=== PATIENT | female | born 2000 | race Caucasian/White ===

== ENCOUNTER 2021-04-03 16:55 | Inpatient (IN) | payer OTHER, MEDICAID, SELFPAY ==
[2021-04-03] VITALS (14 sets, daily range): BP systolic 78–116; BP diastolic 52–63; PULSE 60–91; RESP 16–18; TEMP 36.8–37.6; O2SAT 83–100; BMI 23.0
--- NOTE | ~2021-04-03 | US_ITS ---
US OB limited DATE: 04/03/2021 19:08 INDICATION: Pelvic and back pain today. Evaluate for placental abruption TECHNIQUE: Real-time imaging and Doppler analysis COMPARISON: None FINDINGS: The uterine cervix measures 4 cm length. The fetus is active and in transverse lie. heart rate of 136 bpm. The placenta is situated on t he right. No abnormal retroplacental fluid collection is detected. Subjectively normal amount of anechoic fluid. IMPRESSION: No abrupt show is detected Transverse lie Uterine cervix measures 4 cm length Reviewed, dictated and finalized at Location [facility]. Reviewed, dictated and finalized at location A.
--- NOTE | ~2021-04-03 | US_ITS ---
EXAMINATION: US OB limited EXAM DATE: 04/05/2021 09:07 INDICATION: Check amniotic fluid index. 3rd trimester. TECHNIQUE: Pelvic obstetrical transabdominal sonogram was performed by a technologist. There are mu ltiple grayscale and Doppler images available for interpretation. Comparison is made to prior examina tion from 04/03/2021. FINDINGS: There is a single fetus identified in vertex presentation with a heart rate of 147 beats pe r minute. The placenta is located in the posterior position. There is no sonographic evidence of ret roplacental hemorrhage identified. The amniotic fluid index is 14.6 centimeters, which is normal. IMPRESSION: 1. Single fetus in vertex presentation with heart rate 147 beats per minute. 2. Normal amniotic fluid index 14.6 cm. Reviewed, dictated and finalized at location B.
--- NOTE | ~2021-04-03 | US_ITS ---
EXAMINATION: US_ABDRLQ_US DATE: 04/04/2021 07:43 INDICATION: Pelvic/back pain during second trimester . TECHNIQUE: Multiple grayscale and Doppler ultrasound images of the right lower quadrant of the abdome n were obtained. COMPARISON: None FINDINGS: The appendix is not identified. Partially visualized is the margin of the gravid uterus which is not diagnostically evaluated. No evident ascites in the right lower quadrant. IMPRESSION: 1. Appendix not identified. Reviewed, dictated and finalized at location A. IMPRESSION: 1. Appendix not identified.
--- NOTE | ~2021-04-03 | MR_ITS ---
EXAMINATION: MR abdomen wo con DATE: 04/04/2021 12:46 INDICATION: Right-sided abdominal pain. TECHNIQUE: Magnetic resonance imaging (MRI) of the abdomen was performed without intravenous contrast . Sequences included axial, sagittal and coronal FS 2D-FIESTA, axial and coronal T2-weighted SS-FSE, axial STIR FSE, sagittal T2-weighted FS SS-FSE, axial dual-echo T1-weighted FSPGR, axial diffusion-we ighted SE, and axial T1-weighted LAVA. COMPARISON: None. FINDINGS: No pericardial or pleural effusion. Liver, gallbladder, spleen, pancreas, bilateral adrenal glands an d left kidney are normal. There is mild right hydroureteronephrosis which extends to the mid ureter w here it crosses the bifurcation. There is smooth tapering of the ureter at this location with no intr aureteral filling defects at the transition point to suggest obstructing urolithiasis and obstruction likely results from compression from the gravid uterus. There is a large amount of retroperitoneal f luid surrounding the right kidney which extends across the midline posterior to the duodenum. Bladder is normal. There is a wandering cecum which extends cephalad with the tip abutting the fundus of the gallbladder. The appendix is unable to be definitively identified. There is no inflammatory strandin g surrounding the tip the cecum to suggest acute appendicitis. No bowel obstruction. Placenta is post erior with caudal margin 4.6 cm from the internal cervical os. The fetus is in vertex position. The u mbilical cord extends caudally from the fundal side of the placenta making a single 180 degree loop a round the posterior aspect of the neck. Although not diagnostically evaluated the fetus appears unremarkable. Small amount of free fluid in the cul-de-sac. No pathologically enlarged abdominal or pelvic lymphadenopathy. Bones are unremarkable with normal marrow signal throughout. IMPRESSION: 1. Old right hydroureteronephrosis likely related to extrinsic compression with no evident intralumin al filling defect at the transition point with the ureter tapers between the gravid uterus and the pr oximal most right external iliac artery. There is a large amount of perirenal fluid surrounding the r ight kidney which appears new since the prior ultrasound suggesting interval forniceal rupture. 2. The appendix is not clearly identified however there is inflammatory stranding surrounding the tip of the cecum which is located in the right upper quadrant along the inferior margin of the bladder f undus. 3. Single fetus in vertex position with the umbilical chord making a single 180 degree loop around th e posterior aspect of the neck of the fetus. Reviewed, dictated and finalized at location A. IMPRESSION: 1. Old right hydroureteronephrosis likely related to extrinsic compression with no evident intraluminal filling defect at the transition point with the ureter tapers between the gravid uterus and the proximal most right external iliac ar phillip. There is a large amount of perirenal fluid surrounding the right kidney w hich appears new since the prior ultrasound suggesting interval forniceal ruptu re. 2. The appendix is not clearly identified however there is inflammatory strandi ng surrounding the tip of the cecum which is located in the right upper quadran t along the inferior margin of the bladder fundus. 3. Single fetus in vertex position with the umbilical chord making a single 180 degree loop around the posterior aspect of the neck of the fetus.
--- NOTE | ~2021-04-03 | US_ITS ---
US OB transvaginal DATE: 04/03/2021 19:08 INDICATION: Back and pelvic pain. Evaluate for abruption. Check cervical length. TECHNIQUE: Real-time imaging and Doppler analysis COMPARISON: None FINDINGS: Live torre intrauterine gestation, fetus in transverse lie. movement was observed . heart rate of 136 bpm. Fundal placenta. No retroplacental abnormal fluid collection; no evidence of placental abruption. Sub jectively normal amount of amniotic fluid. Cervix length is approximately 4 cm. IMPRESSION: Fundal placenta; no evidence of abruptio 4 cm cervical length Reviewed, dictated and finalized at Location [facility]. Reviewed, dictated and finalized at location A.
--- NOTE | ~2021-04-03 | US_ITS ---
US renal BI DATE: 04/03/2021 19:05 INDICATION: Back pain, pelvic pain TECHNIQUE: Real-time imaging of kidneys and urinary bladder COMPARISON: None FINDINGS: The right kidney measures 11 cm length, with mild hydronephrosis. The left kidney measures 9.5 cm length, without hydronephrosis. Renal artery resistive index measures 0.68-0.70 on the right and 0.6, 170.70 on the left, within norm al range. The urinary bladder is relatively evacuated, without apparent abnormality. IMPRESSION: Mild right hydronephrosis Reviewed, dictated and finalized at Location [facility]. Reviewed, dictated and finalized at location A. IMPRESSION: Mild right hydronephrosis
--- NOTE | 2021-04-03 16:55 | OBADM ---
This patient, Radha Delaney, admitted to the OB room [facility] for observation. Patient/family oriented to hospital policies and general routines including ID bracelet, bed and alarms, visiting hours, pain management, procedures, bathroom and other care routines, personal items, smoking policy, room service/diet, and visiting hours. Patient/Family are encouraged to report perceived risks to care and to ask questions if they do not understand what they are told or what they should do.
[2021-04-03 17:40] LABS: Add Urine Microscopic? YES; Amorphous Sediment Urine Few; Appearance Urine Cloudy (Clear); Bacteria Urine Trace /hpf; Bilirubin Urine Negative (Negative); Blood Urine Negative (Negative); Color Urine Yellow (Yellow); Glucose Urine UA Negative (Negative); Ketones Urine Negative (Negative); Leukocyte Esterase Ur 2+ LEU/UL (Negative); Mucus Urine Rare /lpf; Nitrate Urine Negative (Negative); Protein Urine Negative (Negative); Specific Grav Ur 1.018 (1.001-1.035); Squamous Epithelial Cell Urine Few /hpf (Few); Urobilinogen Urine Negative mg/dL (<2.0); WBC Urine 16-20 /hpf
[2021-04-03] MEDS: ONDANSETRON INJ 4 MG/2 ML VIAL IV PUSH (18:10)
[2021-04-03] MEDS: fentaNYL CITRATE INJ (*CRX) 100 MCG/2 ML VIAL 50 MCG IV PUSH ×2 (18:17→21:30)
[2021-04-03] MEDS: LACTATED RINGERS 1,000 ML 999 ML IV CONT (18:19)
[2021-04-03 18:35] LABS: Hematocrit 34.9 % (37.0-47.0); Hemoglobin 11.7 g/dL (12.0-15.0); Mean Corpuscular HGB Conc 33.5 g/dl (32-36); Mean Corpuscular Hemoglobin 30.2 pg (26-34); Mean Corpuscular Volume 89.9 fl (80-100); Mean Platelet Volume 11.3 fl (7.4-10.4); Platelet Count Result 206 k/mm3 (150-375); Red Blood Count 3.88 M/mm3 (4.2-5.4); Red Cell Distribution Width 13.2 % (11.5-14.5); White Blood Count 14.3 K/mm3 (4.5-10.0)
[2021-04-03 18:53] LABS: Alanine Aminotransferase 72 U/L (4-35); Albumin Level 3.7 g/dL (3.5-5.1); Alkaline Phosphatase 53 U/L (38-126); Anion Gap 9 mmol/L (8-16); Aspartate Amino Transferase 61 U/L (14-36); Bilirubin,Total 0.3 mg/dL (0.2-1.3); Blood Urea Nitrogen 11 mg/dL (7-17); Calcium 8.9 mg/dL (8.4-10.2); Carbon Dioxide 18 mmol/L (22-30); Chloride 108 mmol/L (98-107); Estimated CRCL calculation 103 ml/min; Estimated Glomerular Filt Rate > 60; Glucose 94 mg/dL (65-110); Sodium 135 mmol/L (137-145)
--- NOTE | 2021-04-03 19:58 | PC.NURSE ---
Marilou Streeter updated on pt. Orders received for pt to have Amylase and lipase drawn. Surgical consult with physician notified maik. Urologist consult in AM. Pt to be placed on D5LR at 150ml/hr continuous. Strain urine for stones and repeat blood work 4 hours after initial lab drawn.
[2021-04-03] MEDS: DEXTROSE 5%/LACTATED RINGERS 1,000 ML 150 ML IV CONT (20:14)
[2021-04-03 20:26] LABS: Amylase 63 U/L (30-110); Lipase 54 U/L (23-300)
--- NOTE | 2021-04-03 20:32 | PC.NURSE ---
Dr. Porter notified of pt. Test and lab results discussed with MD. Porter planning to stop by and see the pt later on tonight.
--- NOTE | 2021-04-03 20:44 | PC.NURSE ---
Courtney updated on surgical consult. Lab test results reported and updated on pt status. No other new orders at this time.
[2021-04-03 22:25] LABS: Hematocrit 30.1 % (37.0-47.0); Hemoglobin 10.1 g/dL (12.0-15.0); Mean Corpuscular HGB Conc 33.6 g/dl (32-36); Mean Corpuscular Hemoglobin 30.5 pg (26-34); Mean Corpuscular Volume 90.9 fl (80-100); Mean Platelet Volume 10.9 fl (7.4-10.4); Platelet Count Result 183 k/mm3 (150-375); Red Blood Count 3.31 M/mm3 (4.2-5.4); Red Cell Distribution Width 13.2 % (11.5-14.5); White Blood Count 17.1 K/mm3 (4.5-10.0)
[2021-04-03 22:43] LABS: Alanine Aminotransferase 63 U/L (4-35); Albumin Level 3.1 g/dL (3.5-5.1); Alkaline Phosphatase 42 U/L (38-126); Amylase 48 U/L (30-110); Anion Gap 5 mmol/L (8-16); Aspartate Amino Transferase 55 U/L (14-36); Bilirubin,Total 0.3 mg/dL (0.2-1.3); Blood Urea Nitrogen 10 mg/dL (7-17); Calcium 8.2 mg/dL (8.4-10.2); Carbon Dioxide 20 mmol/L (22-30); Chloride 108 mmol/L (98-107); Estimated CRCL calculation 103 ml/min; Estimated Glomerular Filt Rate > 60; Glucose 136 mg/dL (65-110); Lipase 27 U/L (23-300); Potassium 3.6 mmol/L (3.4-5.0); Sodium 133 mmol/L (137-145)
--- NOTE | 2021-04-03 22:50 | PC.NURSE ---
Marilou Streeter updated on pt condition. Lab results reported. Orders received to give pt 1 g Tylenol IV x 1 dose, 50mcg Fentanyl q2hr prn after this bag of D5LR switch the pt back to LR at 150. Repeat CBC and CMP for morning labs. okay to dc toco at this time.
--- NOTE | 2021-04-03 23:55 | PC.NURSE ---
Dr. Porter at the bedside seeing the pt.
[2021-04-04] VITALS (7 sets, daily range): BP systolic 98–117; BP diastolic 52–60; PULSE 67–80; TEMP 37.5
--- NOTE | 2021-04-04 00:04 | PM.CNGS ---
Assessment and Plan Assessment and plan (1) Right flank pain: Code(s): R10.9 - Unspecified abdominal pain Status: Acute Assessment and Plan: Patient has right flank pain that appears somewhat colicky and she also has findings of right hydronephrosis and microscopic hematuria. This seems most likely to be urinary in origin, but retro cecal appendicitis could also present similar symptoms. Would expect her to have constant pain if this was appendicitis, and the fact that pain is coming in waves seems most likely to be kidney stone or other urinary problems. Will await evaluation by Urology and will also attempt to get an abdominal ultrasound to try to identify the appendix on ultrasound. MRI may be beneficial if ultrasound is nonconclusive, but this will be difficult to arrange over the weekend. Will consider empiric antibiotic treatment if appendicitis or other infectious source is suspected. (2) Right lower quadrant pain: Code(s): R10.31 - Right lower quadrant pain Status: Acute (3) 23 weeks gestation of : Code(s): Z3A.23 - 23 weeks gestation of Status: Acute History of Present Illness Consult details Consult date: 04/04/21 Reason for consult: other (Right flank pain radiating to right lower quadrant) Requesting physician: Denisa Streeter CNM Narrative: This is a 20-year-old woman I am asked to see for right flank right lower quadrant abdominal pain. She is currently 23 weeks and began experiencing right flank pain that was radiating to the right lower quadrant this morning around 10:00 a.m.. She continues to have colicky pain and describes it as waves of pain. She has periods of time where she has very minimal pain, and then the pain becomes more intense. She has never experienced anything like this in the past. She denies a prior history of kidney stones. She does have more discomfort with urinating. She denies any blood in her urine. She denies any other problems during this . She did have some nausea and vomiting secondary to the pain today. Review of Systems Review of Systems: All systems reviewed & are unremarkable except as noted in HPI and below Constitutional: Constitutional: Denies chills and Denies fever(s) Cardiovascular: Cardiovascular: Denies chest pain and Denies dyspnea Respiratory: Respiratory: Denies dyspnea Gastrointestinal: Gastrointestinal: Reports as per HPI [facility] Past Medical History Medical History (Updated 04/04/21 @ 00:09 by Kahlil Porter DO) No active medical problems Meds Home Medications and Allergies Home Medications Medication Instructions Recorded Confirmed Type vit no.[id number] 1 tablet DAILY 04/03/21 04/03/21 History [Classic ] Allergies Allergy/AdvReac Type Severity Reaction Status Date / Time No Known Allergies Allergy Verified 04/03/21 18:09 Vital Signs Vital Signs - 24 hr 04/03/21 17:15 04/03/21 18:24 04/03/21 18:25 Temperature 37.6 C H Pulse Rate 60 65 61 Respiratory Rate Blood Pressure 112/62 78/53 L 102/52 L Pulse Oximetry 04/03/21 19:23 04/03/21 19:51 04/03/21 21:22 Temperature 37.2 C Pulse Rate 80 Respiratory Rate 18 Blood Pressure 116/63 Pulse Oximetry 100 04/03/21 21:27 04/03/21 21:32 04/03/21 21:37 Temperature Pulse Rate Respiratory Rate Blood Pressure Pulse Oximetry 100 100 83 L 04/03/21 21:42 04/03/21 21:47 04/03/21 21:48 Temperature Pulse Rate 65 Respiratory Rate Blood Pressure 114/63 Pulse Oximetry 96 96 04/03/21 21:52 04/03/21 23:07 Temperature 36.8 C Pulse Rate 70 Respiratory Rate 16 Blood Pressure 108/59 L Pulse Oximetry Exam Const: General: cooperative and no acute distress Nutritional Appearance: average body habitus Orientation/consciousness: patient oriented x3 HENMT: Head: normal to inspection Ears: hearing grossly normal bilat
[2021-04-04] MEDS: fentaNYL CITRATE INJ (*CRX) 100 MCG/2 ML VIAL 50 MCG IV PUSH ×6 (02:28→14:19)
[2021-04-04] MEDS: LACTATED RINGERS 1,000 ML 150 ML IV CONT ×3 (03:16→17:46)
[2021-04-04 05:38] LABS: Hematocrit 31.9 % (37.0-47.0); Hemoglobin 10.5 g/dL (12.0-15.0); Mean Corpuscular HGB Conc 32.9 g/dl (32-36); Mean Corpuscular Hemoglobin 30.2 pg (26-34); Mean Corpuscular Volume 91.7 fl (80-100); Mean Platelet Volume 11.3 fl (7.4-10.4); Platelet Count Result 188 k/mm3 (150-375); Red Blood Count 3.48 M/mm3 (4.2-5.4); Red Cell Distribution Width 13.2 % (11.5-14.5); White Blood Count 18.1 K/mm3 (4.5-10.0)
[2021-04-04 05:53] LABS: Alanine Aminotransferase 64 U/L (4-35); Albumin Level 3.2 g/dL (3.5-5.1); Alkaline Phosphatase 47 U/L (38-126); Anion Gap 5 mmol/L (8-16); Aspartate Amino Transferase 57 U/L (14-36); Bilirubin,Total 0.4 mg/dL (0.2-1.3); Blood Urea Nitrogen 7 mg/dL (7-17); Calcium 8.4 mg/dL (8.4-10.2); Carbon Dioxide 22 mmol/L (22-30); Chloride 107 mmol/L (98-107); Estimated CRCL calculation 103 ml/min; Estimated Glomerular Filt Rate > 60; Glucose 112 mg/dL (65-110); Potassium 3.8 mmol/L (3.4-5.0); Sodium 134 mmol/L (137-145)
--- NOTE | 2021-04-04 05:58 | PC.NURSE ---
Marilou Streeter updated on pt labs. Aware of pt having low grade temp. No new orders at this time.
--- NOTE | 2021-04-04 08:15 | PC.NURSE ---
0806--Dr. Boyd returned call. Report given. Comin in.
--- NOTE | 2021-04-04 09:40 | PM.IMHP ---
H&P: HPI History of Present Illness Date/Time: 04/04/21 09:40 20 y/o G1 @ 23 weeks gestation presented with back and abdominal pain. Pain started 10am yesterday in right side of back and wrapped around to right lower abdomen. Acute x 15 minutes then subsided over the next hour. Pt restarted around 4pm and pt also started vomiting at that time. Chief Complaint: Back and Abdominal pain Review of Systems Review of Systems: All systems reviewed & are unremarkable except as noted in HPI and below [facility] Past Medical History Medical History No active medical problems Meds Home Medications and Allergies Home Medications Medication Instructions Recorded Confirmed Type vit no.[id number] 1 tablet DAILY 04/03/21 04/03/21 History [Classic ] Allergies Allergy/AdvReac Type Severity Reaction Status Date / Time No Known Allergies Allergy Verified 04/03/21 18:09 Vital Signs Vital Signs - 24 hr 04/03/21 17:15 04/03/21 18:24 04/03/21 18:25 Temperature 99.7 F H Pulse Rate 60 65 61 Respiratory Rate Blood Pressure 112/62 78/53 L 102/52 L Pulse Oximetry 04/03/21 19:23 04/03/21 19:51 04/03/21 21:22 Temperature 98.9 F Pulse Rate 80 Respiratory Rate 18 Blood Pressure 116/63 Pulse Oximetry 100 04/03/21 21:27 04/03/21 21:32 04/03/21 21:37 Temperature Pulse Rate Respiratory Rate Blood Pressure Pulse Oximetry 100 100 83 L 04/03/21 21:42 04/03/21 21:47 04/03/21 21:48 Temperature Pulse Rate 65 Respiratory Rate Blood Pressure 114/63 Pulse Oximetry 96 96 04/03/21 21:52 04/03/21 23:07 04/04/21 05:02 Temperature 98.3 F Pulse Rate 70 68 Respiratory Rate 16 Blood Pressure 108/59 L 117/56 L Pulse Oximetry 04/04/21 05:04 04/04/21 07:55 Temperature 99.5 F Pulse Rate 69 Respiratory Rate Blood Pressure 111/59 L Pulse Oximetry Exam Narrative: No flank pain or cva tenderness. Lower back discomfort and lower right quadrant tenderness that is constant but worse with exam. Const: General: uncomfortable GI: GI Palp: Yes Soft to palpation and Yes Tenderness to palpation present (GI) (Right lower quadrant tenderness) H&P: Results Labs Labs: Short CBC 04/03/21 04/03/21 04/04/21 Range/Units 18:07 22:20 05:09 WBC 14.3 H 17.1 H 18.1 H (4.5-10.0) K/mm3 Hgb 11.7 L 10.1 L 10.5 L (12.0-15.0) g/dL Hct 34.9 L 30.1 L 31.9 L (37.0-47.0) % Plt Count 206 183 188 (150-375) k/mm3 BMP 04/03/21 04/03/21 04/04/21 18:08 22:20 05:09 Sodium 135 L 133 L 134 L Potassium 3.0 L 3.6 3.8 Chloride 108 H 108 H 107 Carbon Dioxide 18 L 20 L 22 BUN 11 10 7 Creatinine 0.60 L 0.60 L 0.60 L Glucose 94 136 H 112 H Calcium 8.9 8.2 L 8.4 Liver Function 04/03/21 04/03/21 04/04/21 Range/Units 18:08 22:20 05:09 Total Bilirubin 0.3 0.3 0.4 (0.2-1.3) mg/dL AST 61 H 55 H 57 H (14-36) U/L ALT 72 H 63 H 64 H (4-35) U/L Alkaline Phosphatase 53 42 47 (38-126) U/L Albumin 3.7 3.1 L 3.2 L (3.5-5.1) g/dL Urine 04/03/21 Range/Units 17:24 Urine Color Yellow (Yellow) Urine Appearance Cloudy H (Clear) Urine pH 7.0 (5.0-9.0) Ur Specific [place] 1.018 (1.001-1.035) Urine Protein Negative (Negative) mg/dL Urine Glucose (UA) Negative (Negative) mg/dL Assessment and Plan Additional Plan Upon initial report I was told that the patient had rlq, rl back, and r flank pain along with nausea and vomiting. Initially ordered IV hydration, zofran, labs, pain medication and us (r/o abruption, visualize appendix, renal evaluation, cervical length). Once u/s report was called I asked that they call and have any information about appendix added to the report. Right hydronephrosis. Increased wbc, lft, and temp. General surgery and urology consult ordered along with repeat labs and antibiotics. Pt was s
--- NOTE | 2021-04-04 10:00 | WPDURCON ---
Assessment and Plan Assessment and plan (1) Right lower quadrant pain: Code(s): R10.31 - Right lower quadrant pain Status: Acute Assessment and Plan: Right back/lower quadrant pain, unclear etiology, possibly right ureterolithiasis - we had a long discussion that it is unclear if this pain represents ureteral colic. it is possible. ultrasound shows mild right hydronephrosis which is not all that uncommon in . renal function normal. vitals normal. wbc elevated. we discussed that in general most stones are likely to pass spontaneously in . she can have tamsulosin daily if OK'd by her OB. if culture is positive she would need treatment antibiotics and then consideration of prophylactic antibiotics until delivery. we discussed stent placement though have no diagnosis at this time of stone; we discussed minimal risks of anesthesia and early induction of labor which at 23 weeks would be awful. I would advise against operating unless we have a more clear indication to do so or if she continues to worsen and no other obvious cause identified and in any event should be done during the week with full team of OB and OB anesthesia available (2) 23 weeks gestation of : Code(s): Z3A.23 - 23 weeks gestation of Status: Acute Urology Consult Note HPI Date Seen: 04/04/21 Requesting Physician: Jordan Armas MD Primary Care Provider: FUEL VERIFICATION TECHNICIAN PHYSICIAN Consult Narrative Narrative: Radha Delaney is a 20 year old female who is 23 weeks . She came in for right LBP radiating to the front. She has no urologic history. Urology was consulted to help evaluate for possible ureterolithiasis. She had a renal ultrasound indicting mild right hydro with no other abnormalities noted. She had a pelvic ultrasound and abdominal ultrasound which were essentially unremarkable. Baby appears healthy. Creat is 0.6. WBC is 18. Urine has 16-20 WBCs, 6-10 RBCs, culture pending. On exam her pain really is right low back. Review of Systems Review of Systems: All systems reviewed & are unremarkable except as noted in HPI and below PMF[facility] Past Medical History Medical History No active medical problems Meds Home Medications and Allergies Home Medications Medication Instructions Recorded Confirmed Type vit no.[id number] 1 tablet DAILY 04/03/21 04/03/21 History [Classic ] Allergies Allergy/AdvReac Type Severity Reaction Status Date / Time No Known Allergies Allergy Verified 04/03/21 18:09 Vital Signs Vital Signs - 24 hr 04/03/21 17:15 04/03/21 18:24 04/03/21 18:25 Temperature 37.6 C H Pulse Rate 60 65 61 Respiratory Rate Blood Pressure 112/62 78/53 L 102/52 L Pulse Oximetry 04/03/21 19:23 04/03/21 19:51 04/03/21 21:22 Temperature 37.2 C Pulse Rate 80 Respiratory Rate 18 Blood Pressure 116/63 Pulse Oximetry 100 04/03/21 21:27 04/03/21 21:32 04/03/21 21:37 Temperature Pulse Rate Respiratory Rate Blood Pressure Pulse Oximetry 100 100 83 L 04/03/21 21:42 04/03/21 21:47 04/03/21 21:48 Temperature Pulse Rate 65 Respiratory Rate Blood Pressure 114/63 Pulse Oximetry 96 96 04/03/21 21:52 04/03/21 23:07 04/04/21 05:02 Temperature 36.8 C Pulse Rate 70 68 Respiratory Rate 16 Blood Pressure 108/59 L 117/56 L Pulse Oximetry 04/04/21 05:04 04/04/21 07:55 Temperature 37.5 C Pulse Rate 69 Respiratory Rate Blood Pressure 111/59 L Pulse Oximetry Exam Narrative: sleeping but arousable and conversive; notes pain in the right low back/hip, in no distress, , no focal deficits, no obvious skin lesions, no clear cva tenderness Results Labs CBC & Chem 7: 04/04/21 05:09 04/04/21 05:09 Labs: Short CBC 04/03/21 04/03/21 04/04/21 Range/Units 18:07 22:20 05:09 WBC 14.3
--- NOTE | 2021-04-04 12:56 | PC.NURSE ---
1205--To MRI per wheelchair.
--- NOTE | 2021-04-04 12:58 | PC.NURSE ---
110--Dr. Porter responded to page; report given. MRI ordered.
--- NOTE | 2021-04-04 13:32 | PC.NURSE ---
5258--Dr. Potrer reporting that the MRI shows no appendicitis and urology may need to get involved again.
[2021-04-04] MEDS: KETOROLAC 30 MG/ML VIAL (*BKC) IV PUSH (15:39)
[2021-04-04] MEDS: TAMSULOSIN HCL 0.4 MG CAPSULE PO (15:40)
--- NOTE | 2021-04-04 16:00 | WPDUROPN2 ---
Progress Note: A&P Assessment and Plan (1) Right flank pain: Code(s): R10.9 - Unspecified abdominal pain Status: Acute Additional Plan 20F at 23wks with right flank pain. - reviewed MRI imaging with dr ramirez--- no evidence of stone but a tapering of right ureter where the uterus lays on the iliacs. now some fluid around kidney, possibly forniceal rupture. still with only mild hydronephrosis and normal creatinine. spoke with nurse trinidad with recommendations for tamsulosin (OK'd by OB) and laying as much as possible on left side. relayed to monday uro team to follow. Subjective Subjective Date/Time Seen: 04/04/21 16:00 Objective Data Vital Signs Vital Signs: Vital Signs - 24 hr 04/03/21 17:15 04/03/21 18:24 04/03/21 18:25 Temperature 37.6 C H Pulse Rate 60 65 61 Respiratory Rate Blood Pressure 112/62 78/53 L 102/52 L Pulse Oximetry 04/03/21 19:23 04/03/21 19:51 04/03/21 21:22 Temperature 37.2 C Pulse Rate 80 Respiratory Rate 18 Blood Pressure 116/63 Pulse Oximetry 100 04/03/21 21:27 04/03/21 21:32 04/03/21 21:37 Temperature Pulse Rate Respiratory Rate Blood Pressure Pulse Oximetry 100 100 83 L 04/03/21 21:42 04/03/21 21:47 04/03/21 21:48 Temperature Pulse Rate 65 Respiratory Rate Blood Pressure 114/63 Pulse Oximetry 96 96 04/03/21 21:52 04/03/21 23:07 04/04/21 05:02 Temperature 36.8 C Pulse Rate 70 68 Respiratory Rate 16 Blood Pressure 108/59 L 117/56 L Pulse Oximetry 04/04/21 05:04 04/04/21 07:55 04/04/21 14:24 Temperature 37.5 C Pulse Rate 69 67 Respiratory Rate Blood Pressure 111/59 L 112/60 Pulse Oximetry 04/04/21 14:30 04/04/21 14:45 Temperature Pulse Rate 72 73 Respiratory Rate Blood Pressure 111/57 L 104/57 L Pulse Oximetry Intake/Output Intake/Output: Intake & Output 04/01/21 04/02/21 04/03/21 04/04/21 23:59 23:59 23:59 23:59 Intake Total 1150 2000 Output Total 200 500 Balance 950 1500 Meds/Results Medications: Active Medications Generic Name Dose Route Start Last Admin Trade Name Tania PRN Reason Stop Dose Admin Fentanyl Citrate 50 mcg 04/03/21 22:58 04/04/21 14:19 Fentanyl Citrate Inj (*Crx) 100 Mcg/2 Ml Vial IV PUSH 50 mcg Q2HR PRN Administration SEVERE PAIN Lactated Ringer's 1,000 mls @ 150 mls/hr 04/04/21 00:35 04/04/21 10:07 Lr - Lactated Ringers Iv IV CONT 150 mls/hr .[id number] ISMA Administration Acetaminophen 1,000 mg in 100 mls @ 400 mls/hr 04/04/21 08:44 Ofirmev 1,000 Mg Ivpb IVPB 04/05/21 08:45 Q6H PRN Pain Rated 4-6 Radiology Results: ITS Impressions Obstetrics Ultrasound 04/03/21 19:19 IMPRESSION: No abrupt show is detected Transverse lie Uterine cervix measures 4 cm length Renal Ultrasound 04/03/21 19:34 IMPRESSION: Mild right hydronephrosis Transvaginal US 04/03/21 23:11 IMPRESSION: Fundal placenta; no evidence of abruptio 4 cm cervical length Abdomen Ultrasound 04/04/21 08:12 IMPRESSION: 1. Appendix not identified. Abdomen MRI 04/04/21 15:05 IMPRESSION: 1. Old right hydroureteronephrosis likely related to extrinsic compression with no evident intraluminal filling defect at the transition point with the ureter tapers between the gravid uterus and the proximal most right external iliac artery. There is a large amount of perirenal fluid surrounding the right kidney which appears new since the prior ultrasound suggesting interval forniceal rupture. 2. The appendix is not clearly identified however there is inflammatory stranding surrounding the tip of the cecum which is located in the right upper quadrant along the inferior margin of the bladder fundus. 3. Single fetus in vertex position with the umbilical chord making a single 180 degree loop around the posterior aspect of the neck of the fetus. Labs Labs: La
--- NOTE | 2021-04-04 16:22 | PC.NURSE ---
1455--Report of MRI from radiologist Dr. Jones given. Will speak to Dr. Boyd directly about MRI report. 1457--Informed Dr. Boyd that radiologist will report to him; phone number given. 1517--Dr. Boyd called to report results from MRI. Orders taken. 1520--Reported Dr. Boyd information to Dr. Armas. Orders taken.
--- NOTE | 2021-04-04 20:00 | PC.NURSE ---
Pt is resting quietly on left side. Pt states pain had restarted and now has subsided. Pt states she had wanted IV Tylenol but would like to wait now until pain returns.
--- NOTE | 2021-04-04 20:20 | PC.NURSE ---
Update to Marilou Streeter CNM. Pt has no complaints at this time.
[2021-04-05] VITALS (17 sets, daily range): BP systolic 89–119; BP diastolic 43–58; PULSE 69–93; RESP 16–18; TEMP 36.8–37.8; O2SAT 88–98
--- NOTE | 2021-04-05 00:20 | PC.NURSE ---
Pt has been sleeping at times. Pt denies any pain at this time. Up tp bathroom with assist from her mother.
[2021-04-05] MEDS: fentaNYL CITRATE INJ (*CRX) 100 MCG/2 ML VIAL 50 MCG IV PUSH ×2 (04:15→07:06)
--- NOTE | 2021-04-05 04:30 | PC.NURSE ---
Pt called out requesting pain medication. Pain described as previous pain right flank area rated as 6. Fentenyl 50 mg given IV and Pt given IV Tylenol. Pt resting quietly with eyes closed as pain medication was given.
[2021-04-05 05:25] LABS: Basophils Percent Auto 0.3 % (0.2-1.2); Hematocrit 27.8 % (37.0-47.0); Immature Granulocyte Absolute 0.17 K/mm3 (0.00-0.031); Immature Granulocyte Percent A 1.3 % (0-0.5); Lymphocytes Absolute Auto 1.22 K/mm3 (0.9-3.2); Lymphocytes Percent Auto 9.6 % (18.3-44.2); Mean Corpuscular HGB Conc 32.4 g/dl (32-36); Mean Corpuscular Hemoglobin 30.1 pg (26-34); Monocytes Absolute Auto 1.1 K/mm3 (0.1-0.6); Monocytes Percent Auto 8.8 % (2.6-8.5); Neutrophils Absolute Auto 10.1 K/mm3 (1.3-6.7); Platelet Count Result 164 k/mm3 (150-375); Red Blood Count 2.99 M/mm3 (4.2-5.4); Red Cell Distribution Width 13.2 % (11.5-14.5); White Blood Count 12.7 K/mm3 (4.5-10.0)
[2021-04-05 05:31] LABS: Alanine Aminotransferase 45 U/L (4-35); Albumin Level 2.5 g/dL (3.5-5.1); Alkaline Phosphatase 40 U/L (38-126); Anion Gap 3 mmol/L (8-16); Aspartate Amino Transferase 34 U/L (14-36); Bilirubin,Total 0.3 mg/dL (0.2-1.3); Blood Urea Nitrogen 7 mg/dL (7-17); Calcium 7.7 mg/dL (8.4-10.2); Carbon Dioxide 23 mmol/L (22-30); Chloride 105 mmol/L (98-107); Estimated CRCL calculation 103 ml/min; Estimated Glomerular Filt Rate > 60; Glucose 83 mg/dL (65-110); Potassium 3.3 mmol/L (3.4-5.0); Sodium 131 mmol/L (137-145)
--- NOTE | 2021-04-05 06:40 | PC.NURSE ---
Update to Marilou Streeter CNM. PT sleeping at this time.
[2021-04-05] MEDS: LACTATED RINGERS 1,000 ML 150 ML IV CONT ×3 (07:09→22:51)
--- NOTE | 2021-04-05 07:45 | WPDUROPN2 ---
Progress Note: A&P Assessment and Plan (1) Hydronephrosis, right: Code(s): N13.30 - Unspecified hydronephrosis Status: Acute Assessment and Plan: MRI shows no evidence of intraluminal stone. It does show mild right hydronephrosis. There is some fluid around the kidney. At this point I would try to manage this conservatively with pain medication and laying on her left side as much as possible to offload the uterus off the ureter. A ureteral stent does remain a possibility. We would obviously like to hold off on this if her issues can be managed non operatively. If a ureteral stent is needed it would require changing under anesthesia every month and the continued likelihood of need for narcotic or anticholinergic medications to manage stent discomfort. We will follow along. (2) Right flank pain: Code(s): R10.9 - Unspecified abdominal pain Status: Acute Subjective Subjective Date/Time Seen: 04/05/21 07:45 MRI results were noted. There is no evidence of obstructing stone. There is evidence of compression of the ureter by the gravid uterus. There is also evidence of fluid around the kidney. This could all represent a recently passed stone or mild obstruction from a gravid uterus. Mild hydronephrosis persists. She states her pain is improved. She states she had several hours pain free yesterday. Exam Const: General: cooperative, healthy appearing, alert and awake; No ill appearing HENMT: Head: normal to inspection Eyes: General: appearance normal, both eyes and all related structures Neck: Neck: normal visual inspection Resp: Effort & Inspection: normal respiratory effort and able to speak in complete sentences GI: Inspection: normal to inspection Other: Does note some right lower back tenderness Skin: General skin exam: normal color Objective Data Vital Signs Vital Signs: Vital Signs - 24 hr 04/04/21 07:55 04/04/21 14:24 04/04/21 14:30 Temperature Pulse Rate 69 67 72 Blood Pressure 111/59 L 112/60 111/57 L 04/04/21 14:45 04/04/21 19:37 04/05/21 00:10 Temperature 98.2 F Pulse Rate 73 80 74 Blood Pressure 104/57 L 98/52 L 89/43 L 04/05/21 04:30 04/05/21 07:13 04/05/21 07:28 Temperature 99.4 F 98.2 F Pulse Rate 69 Blood Pressure 96/53 L Intake/Output Intake/Output: Intake & Output 04/02/21 04/03/21 04/04/21 04/05/21 23:59 23:59 23:59 23:59 Intake Total 1150 5573 1300 Output Total 200 1950 700 Balance 950 3623 600 Meds/Results Medications: Active Medications Generic Name Dose Route Start Last Admin Trade Name Freq PRN Reason Stop Dose Admin Acetaminophen 650 mg 04/05/21 05:19 Acetaminophen 325 Mg Tablet PO Q4H PRN Mild Pain (1-3) or Fever Fentanyl Citrate 50 mcg 04/03/21 22:58 04/05/21 07:06 Fentanyl Citrate Inj (*Crx) 100 Mcg/2 Ml Vial IV PUSH 50 mcg Q2HR PRN Administration SEVERE PAIN Lactated Ringer's 1,000 mls @ 150 mls/hr 04/04/21 00:35 04/05/21 07:09 Lr - Lactated Ringers Iv IV CONT 150 mls/hr .[id number] ISMA Administration Acetaminophen 1,000 mg in 100 mls @ 400 mls/hr 04/04/21 08:44 04/05/21 04:28 Ofirmev 1,000 Mg Ivpb IVPB 04/05/21 08:45 400 mls/hr Q6H PRN Administration Pain Rated 4-6 Radiology Results: ITS Impressions Obstetrics Ultrasound 04/03/21 19:19 IMPRESSION: No abrupt show is detected Transverse lie Uterine cervix measures 4 cm length Renal Ultrasound 04/03/21 19:34 IMPRESSION: Mild right hydronephrosis Transvaginal US 04/03/21 23:11 IMPRESSION: Fundal placenta; no evidence of abruptio 4 cm cervical length Abdomen Ultrasound 04/04/21 08:12 IMPRESSION: 1. Appendix not identified. Abdomen MRI 04/04/21 15:05 IMPRESSION: 1. Old right hydroureteronephrosis likely related to extrinsic compression with no evident intraluminal filling defect at the transition point with the ureter taper
--- NOTE | 2021-04-05 08:04 | WPDHPUPDATE1 ---
History and Physical Update Update Date/Time: 04/05/21 08:04 VSS and afebrile Abdomen soft Mid/lower right back pain. Improved with Tylenol but wears off after a couple hours. No relief from fentanyl. Best relief achieved with toradol and flomax yesterday. FHR appropriate for gestational age. Urine culture negative WBC decreasing Plan: Review urology note once entered. Update Dr Armas on status and determine if candidate for toradol and flomax again. History and Physical has been reviewed, including an updated exam of the patient. There are NO changes in the patient's condition. Risks, benefits, and alternatives have been discussed and questions answered. Patient agrees to proceed with procedure.
--- NOTE | 2021-04-05 08:23 | WPDHPUPDATE1 ---
History and Physical Update Update Date/Time: 04/05/21 08:[address] Armas and pt can have 1 more dose of toradol this morning and flomax when time. This will help determine which is the most effective for her pain. Pt and mother informed. History and Physical has been reviewed, including an updated exam of the patient. There are NO changes in the patient's condition. Risks, benefits, and alternatives have been discussed and questions answered. Patient agrees to proceed with procedure.
[2021-04-05] MEDS: KETOROLAC 30 MG/ML VIAL (*BKC) IV PUSH (09:36)
--- NOTE | 2021-04-05 15:03 | PC.NURSE ---
Amada Streeter updated on pain levels after Toradol this morning, Order for Flomax given.
[2021-04-05] MEDS: TAMSULOSIN HCL 0.4 MG CAPSULE PO (15:31)
[2021-04-05] MEDS: NAPROXEN 250 MG TABLET PO (17:53)
--- NOTE | 2021-04-05 17:58 | PC.NURSE ---
Patient with c/o of increased back pain and now chills and a little shortness of breath. VVS, temp 99.9. Cheeks are noted to be flushed. O2 sats 97-99%. Patient and her mother state that she thinks her shortness of breath is from the pain.
--- NOTE | 2021-04-05 18:05 | PC.NURSE ---
Amada Streeter notified of increase in pain, chills, temp of 99.9, flushed cheeks and slight shortness of breath. Orders to call urology and see if they have any other ideas for treatment.
--- NOTE | 2021-04-05 19:09 | PC.NURSE ---
Dr Boyd paged via the exchange.
--- NOTE | 2021-04-05 19:17 | PC.NURSE ---
Dr Boyd updated on lack of pain control. No new orders. MD will be in tomorrow to evaluate for a stent.
--- NOTE | 2021-04-06 00:10 | PC.NURSE ---
Awoke pt from sleep. Pt declines pain medication at this time.
[2021-04-06 03:39] VITALS: PULSE 75; RESP 18; TEMP 36.7; O2SAT 91; O2SAT 93
[2021-04-06 03:40] VITALS: BP 107/60; PULSE 75
[2021-04-06] MEDS: KETOROLAC 30 MG/ML VIAL (*BKC) IV PUSH (03:42)
[2021-04-06] MEDS: LACTATED RINGERS 1,000 ML 150 ML IV CONT (05:34)
[2021-04-06 08:00] VITALS: RESP 18; TEMP 36.9; O2SAT 94
--- NOTE | 2021-04-06 08:09 | PC.NURSE ---
Dr Armas here and plan of care discussed regarding pain management and medication plans for possible discharge.
--- NOTE | 2021-04-06 08:11 | PM.OBPNVD ---
OB - PN: Subj Subjective Date/time seen: 04/06/21 08:11 patient has moderate to mild pain in the right flank, denies fevers chills nausea or vomiting. Pain has slowly improved time of admission. No vaginal bleeding, no cramping. OB - PN: Obj Data Labs CBC & Chem 7: 04/05/21 05:00 04/05/21 05:00 Imaging Radiologist's impression: Impressions Obstetrics Ultrasound 04/05/21 09:18 IMPRESSION: 1. Single fetus in vertex presentation with heart rate 147 beats per minute. 2. Normal amniotic fluid index 14.6 cm. OB - PN A/P Assessment and Plan (1) Right flank pain: Code(s): R10.9 - Unspecified abdominal pain Status: Acute (2) 23 weeks gestation of : Code(s): Z3A.23 - 23 weeks gestation of Status: Acute (3) Hydronephrosis, right: Code(s): N13.30 - Unspecified hydronephrosis Status: Acute Assessment and Plan: This patient is a 20-year-old female with right flank pain likely secondary to resolving stone or hydronephrosis with some Rodney renal fluid. Likely forniceal rupture. Pain is improved. She is using Toradol and Tylenol for pain management. This seems to be working well at this time. We can continue that up to 30 weeks. We are changing over then to oral medication. We going to restart her antibiotics. She has had some elevated body temperatures. We would like to continue antibiotics to treat or prevent infection of the urinary tract. Urology to see patient again today. Will consider discharge later., Time Spent With Patient Time: Total time spent is greater than 50% in coordination of care (as documented) at patient's floor/unit and/or counseling patient: Exam Const: General: comfortable, no acute distress and alert Resp: Effort & Inspection: normal respiratory effort Auscultation: no crackles, no rales and no rhonchi Cardio: Rate: regular rate Heart sounds: no click, no murmurs and no rubs GI: Inspection: non-distended GI Palp: No Tenderness to palpation present (GI) Auscultation: normal bowel sounds Other: Incision - CDI Extrem: General: normal to inspection, no pedal edema and no calf tenderness
[2021-04-06 08:27] VITALS: BP 106/44; PULSE 87; PULSE 90; O2SAT 92
--- NOTE | 2021-04-06 08:30 | PC.NURSE ---
Dr Burton at bedside to discuss plan of care. Discussed stent placement only if pain is not controlled. Patient and mother agreeable to plan of care at this time.
--- NOTE | 2021-04-06 08:35 | PC.NURSE ---
Patient encouraged to walk in halls when pain is in good control.
[2021-04-06] MEDS: KETOROLAC 10 MG TABLET PO (09:02)
--- NOTE | 2021-04-06 09:14 | WPDUROPN2 ---
Progress Note: A&P Assessment and Plan (1) Right flank pain: Code(s): R10.9 - Unspecified abdominal pain Status: Acute Assessment and Plan: Etiology is unclear at this time. Patient however is clinically stable and is afebrile. She is actually feeling better this morning. Have discussed management with patient and her mother including observation, or proceeding with cystoscopy right ureteral stent possible ureteroscopy. Given the fact that she is improving we will hold off at this time. (2) Hydronephrosis, right: Code(s): N13.30 - Unspecified hydronephrosis Status: Acute Assessment and Plan: See above Subjective Subjective Date/Time Seen: 04/06/21 09:14 Principal diagnosis: Right renal colic Interval history: Radha is actually feeling better this morning. I have reviewed the MRI with Radiology and discussed the case with the patient as well as her mother. Patient is afebrile with a decreasing white count from yesterday Review of Systems Review of Systems: All systems reviewed & are unremarkable except as noted in HPI and below Exam Const: General: cooperative and comfortable Objective Data Vital Signs Vital Signs: Vital Signs - 24 hr 04/05/21 11:00 04/05/21 15:31 04/05/21 15:37 Temperature 37.3 C 37.7 C H Pulse Rate 93 Respiratory Rate Blood Pressure 100/51 L Pulse Oximetry 04/05/21 17:52 04/05/21 17:54 04/05/21 17:55 Temperature 37.7 C H Pulse Rate 88 Respiratory Rate 18 Blood Pressure 119/52 L Pulse Oximetry 96 98 04/05/21 18:40 04/05/21 18:41 04/05/21 18:43 Temperature 37.6 C H Pulse Rate 88 Respiratory Rate 16 Blood Pressure 113/58 L Pulse Oximetry 97 04/05/21 21:26 04/05/21 22:52 04/05/21 22:56 Temperature 37.8 C H 37.2 C Pulse Rate Respiratory Rate Blood Pressure Pulse Oximetry 88 L 04/05/21 22:57 04/06/21 03:39 04/06/21 03:40 Temperature 36.7 C Pulse Rate 81 75 Respiratory Rate 16 18 Blood Pressure 111/56 L 107/60 Pulse Oximetry 94 93 04/06/21 08:27 Temperature Pulse Rate 90 Respiratory Rate Blood Pressure 106/44 L Pulse Oximetry 92 Intake/Output Intake/Output: Intake & Output 04/03/21 04/04/21 04/05/21 04/06/21 23:59 23:59 23:59 23:59 Intake Total 1150 5573 3500 1200 Output Total 200 1950 2725 150 Balance 950 3623 775 1050 Meds/Results Medications: Active Medications Generic Name Dose Route Start Last Admin Trade Name Freq PRN Reason Stop Dose Admin Acetaminophen 1,000 mg 04/06/21 08:09 Acetaminophen 500 Mg Tablet PO Q6H PRN Mild Pain (1-3) or Fever Ketorolac Tromethamine 10 mg 04/06/21 08:09 04/06/21 09:02 Ketorolac 10 Mg Tablet PO 10 mg Q6H PRN Administration Pain Rated 4-6 Radiology Results: ITS Impressions Renal Ultrasound 04/03/21 19:34 IMPRESSION: Mild right hydronephrosis Transvaginal US 04/03/21 23:11 IMPRESSION: Fundal placenta; no evidence of abruptio 4 cm cervical length Abdomen Ultrasound 04/04/21 08:12 IMPRESSION: 1. Appendix not identified. Abdomen MRI 04/04/21 15:05 IMPRESSION: 1. Old right hydroureteronephrosis likely related to extrinsic compression with no evident intraluminal filling defect at the transition point with the ureter tapers between the gravid uterus and the proximal most right external iliac artery. There is a large amount of perirenal fluid surrounding the right kidney which appears new since the prior ultrasound suggesting interval forniceal rupture. 2. The appendix is not clearly identified however there is inflammatory stranding surrounding the tip of the cecum which is located in the right upper quadrant along the inferior margin of the bladder fundus. 3. Single fetus in vertex position with the umbilical chord making a single 180 degree loop around the posterior aspect of the neck of the fetus. Obstetrics Ultrasound 04/05/21 0
--- NOTE | 2021-04-06 09:38 | PC.NURSE ---
Patient up walking in halls as encouraged.
--- NOTE | 2021-04-06 12:15 | PC.NURSE ---
Patient states that she is feeling better and is wanting to go home. PO Tylenol given and will revaluate pain in an hour before calling MD for discharge orders.
[2021-04-06] MEDS: ACETAMINOPHEN 500 MG TABLET 1000 MG PO (12:21)
--- NOTE | 2021-04-25 19:15 | PM.DS ---
DS: Admitting Diagnosis Discharge Date 04/06/21 Admitting Diagnosis Flank pain, DS: Discharge Diagnosis Discharge Diagnosis (1) Hydronephrosis, right: Code(s): N13.30 - Unspecified hydronephrosis Status: Acute (2) 23 weeks gestation of : Code(s): Z3A.23 - 23 weeks gestation of Status: Acute (3) Right flank pain: Code(s): R10.9 - Unspecified abdominal pain Status: Acute DS: Summary Hospital Course Hospital Course: this patient is a 20-year-old female who was admitted for and flank pain. She was evaluated. Multiple imaging studies were performed. Surgery consult a neurology consult were completed. Patient appeared to have an obstructive urinary tract issue on her right side. Pain improved over time. She is afebrile throughout the stay. Her white count was normal. She was discharged home later with the pain control measures and short-term follow-up. Time Spent with Patient Time attestation: Total time spent providing and/or coordinating discharge services: Discharge Plan Discharge Attending physician on discharge: Jordan Armas Consulting providers: Yobani Boyd ; Kahlil Porter ; Denisa Streeter ; Ezra Owen ; Thanh Burton ; Yordy Chan ; Fawad Jones Discharging Clinician: Jordan Armas Patient Disposition: Home, Self-Care Activity: as tolerated Diet: as tolerated Discharge Instructions: OB ANTEPARTUM DISCHARGE INSTRUCTIONS This information is given to help you properly care for yourself at home after your discharge from the hospital. Follow these instructions until your doctor tells you otherwise. DIET: Eat Three Well Balanced Meals per Day Drink at Least Eight 8-Ounce Glasses of Caffeine-Free Beverages Daily Advance As Tolerated Additional Diet Instructions: ACTIVITY: As Tolerated Additional Activity Instructions: RETURN TO LABOR AND DELIVERY IF YOU HAVE: Any Change In Baby's Normal Movement Pattern Any Leakage of Fluid Vaginal Bleeding Additional Reasons to Return to Labor and Delivery: Contractions may feel like abdominal pain, tightening, cramping, pressure, back ache, or thigh ache. OTHER INSTRUCTIONS: Return to labor for fever greater than 100.4, increase in pain, or blood in urine. FOLLOW-UP CARE: Call Office and Make Appointment To see Follow up this week in office. in/on Valuables released to patient or family? N/A Medications from home returned to patient? N/A I Acknowledge Receipt of and Understand the Above Instructions IF YOU HAVE ANY QUESTIONS REGARDING THESE INSTRUCTIONS, PLEASE CALL [phone]. IF PROBLEMS ARISE, CALL YOUR PROVIDER. IF EMERGENCY CARE IS NEEDED, [facility] EMERGENCY ROOM IS AVAILABLE 24 HOURS A DAY. Patient Instructions: Antibiotic Form Stand Alone Forms: General Discharge Information Follow-up/Referrals: Jordan Armas MD [Physician] - Discharge Medications: New ketorolac 10 mg Tablet 10 mg PO Q6H PRN (Reason: Pain (Scale Score 4-6)) Qty: 30 RF: 0 nitrofurantoin monohyd/m-cryst [Macrobid] 100 mg Capsule 100 mg PO Q12H Qty: 14 RF: 0 Continued Classic 28 mg iron- 800 mcg Tablet 1 tablet DAILY RF: 0 Date of admission: 04/05/21 16:09 Primary Care Provider: [facility] Admitting Provider: Jordan Armas Attending physician on admission: Jordan Armas Condition: Stable
== END 2021-04-06 14:10 | disposition home or self-care (01) | DRG 832 ==
PROVIDERS: Advanced Practice Midwife; Admitting Provider Obstetrics & Gynecology; Visit Provider Obstetrics & Gynecology
DX: O99.891 Other specified diseases and conditions complicating pregnancy (principal); N13.30 Unspecified hydronephrosis; Z3A.23 23 weeks gestation of pregnancy
CPT/HCPCS: 36415; 74181; 76705; 76775; 76815; 76817; 80053; 81001; 82150; 83690; 85025; 85027; 87086; A9270; J0131; J0690; J0696; J1885; J2405; J3010; J7120; J7121

== ENCOUNTER 2021-07-27 16:03 | Inpatient (IN) | payer OTHER, MEDICAID, SELFPAY ==
[2021-07-27] VITALS (11 sets, daily range): BP systolic 123–157; BP diastolic 64–102; PULSE 81–119; TEMP 37.3; O2SAT 96–100; BMI 25.8
--- NOTE | ~2021-07-27 | US_ITS ---
US OB limited 07/27/2021 17:22 Indication: Evaluate well-being. No heart motions detected. Procedure: High-resolution Limited obstetrical ultrasound Comparison: 04/05/2021 Findings: There is an intrauterine . No heart motions detected, consistent with demise. Amniotic fluid volume is subjectively normal. Placenta is maternal right. Presentation is brett emigdio. Impression: 1: No heart motions detected, consistent with demise. Dr. Jose Holman discussed with Gloria from OB at 07/27/2021 17:30 LOCAL SALES ASSOCIATE. Reviewed, dictated and finalized at location A. L SALES ASSOCIATE Impression: 1: No heart motions detected, consistent with demise. Dr. Jose Holman discussed with Gloria from OB at 07/27/2021 17:30 LOCAL SALES ASSOCIATE.
--- NOTE | 2021-07-27 16:03 | LDADM ---
This patient, Radha Delaney, was admitted to Labor/Delivery/Recovery 109 on 07/27/21 at 16:03. Plans for labor, pain management and were discussed with patient. Patient/family oriented to hospital policies and general routines including ID bracelet, bed and alarms, visiting hours, pain management, procedures, bathroom and other care routines, personal items, smoking policy, room service/diet and guest tray routines, security routines, and visiting hours. Patient/Family are encouraged to report perceived risks to care and to ask questions if they do not understand what they are told or what they should do. See OBIX for further documentation.
--- OUTSIDE RECORDS SUMMARY | 2021-07-27 16:09 | XMS_ITS | Encounter Summary ---
:2000 Author Care Team Providers Name Role Phone Yamil Huerta MD Primary Care Provider [phone] Reason for Visit OB visit OB [id number] EDC 07/30/2021 LMP 10/13/2020 Assessment and Plan Assessment Note Patient is __37_weeks . Dis cussed plan. 1. Routine care Discussion Note: None recorded.Patient educational handouts: No information available. Plan of Care Reminders Provider Appointments Ob Routine Lucía Jeffries, 07/28/2021 CNM 9:45AM Lab None ? ? recorded. Referral None ? ? recorded. Procedures None ? ? recorded. Surgeries None ? ? recorded. Imaging None ? ? recorded. Medications Name Start Date ? ? ? Medications Administered None recorded. Vitals Height Weight BMI Blood Pressure 5 ft 6 in 150 lbs 24.2 kg/m2 134/85 mm[Hg] Results Lab Results None recorded. Allergies Code Code System Name Reaction Severity Onset NKDA ? ? ? Problems Name Status Onset Date Source ? Active
--- OUTSIDE RECORDS SUMMARY | 2021-07-27 16:09 | XMS_ITS | Encounter Summary ---
:2000 Author Care Team Providers Name Role Phone Yamil Huerta MD Primary Care Provider [phone] Reason for Visit OB visit OV [id number] EDC 07/30/2021 LMP 10/23/2020 Assessment and Plan Assessment Note Patient is _30__weeks . Dis cussed plan. 1. Routine care [...] BMI Blood Pressure 5 ft 6 in 141 lbs 22.8 kg/m2 104/70 mm[Hg] Results Lab Results None recorded. Allergies Code Code System Name Reaction Severity Onset NKDA ? ? ? Problems Name Status Onset Date Source ? Active
--- OUTSIDE RECORDS SUMMARY | 2021-07-27 16:09 | XMS_ITS | Encounter Summary ---
:2000 Author Care Team Providers Name Role Phone Yamil Huerta MD Primary Care Provider [phone] Reason for Visit None recorded. Assessment and Plan 1. Uterine size for dates discre pancy ? US, obstetric, follow-up Discussion Note: None recorded.Patient educational handouts: No information available. Plan of Care Reminders Provider Appointments Ob Routine Lucía Jeffries, 07/28/2021 CNM 9:45AM Lab None ? ? recorded. Referral None ? ? recorded. Procedures None ? ? recorded. Surgeries None ? ? recorded. Imaging , [facility], Follow-up 05/12/2021 Medications Name Start Date ? ? ? Medications Administered None recorded. Vitals None recorded. Results Lab Results None recorded. Allergies Code Code System Name Reaction Severity Onset NKDA ? ? ? Problems Name Status Onset Date Source ? Active 01/22/2021 ? Procedures Date Name Performed by ? 08/07
--- OUTSIDE RECORDS SUMMARY | 2021-07-27 16:09 | XMS_ITS ---
:2000 Author Care Team Providers Name Role Phone ANDERSON LO MD Primary Care Provider [phone] Allergies Code Code System Name Reaction Severity Status Onset NKDA ? Medications Name Status Start Date Stop Date ? ? azithromycin 500 mg tablet Completed ? 01/22 TAKE 2 TABLETS BY MOUTH EVERY DAY ID NOW COVID-19 Test Kit Completed ? 021 TEST DIRECTED ketorolac 10 mg tablet Completed ? nitrofurantoin monohydrate/macrocrystals 100 mg capsule Complete d ? 05/12/2021 TAKE 1 CAPSULE BY MOUTH EVERY 12 HOURS ondansetron HCl 4 mg tablet Completed ? 01/05 TAKE 1 TABLET BY MOUTH 30 MINUTES PRIOR TO ANTIBIOTIC Active ? Not available Problems Name Status Onset Date Source ? Active 01/22/2021 ? Procedures Date Name Performed by ? 08/07/2000 Removal of Mole of Skin by Excision Info rmation not available Notes: head 01/22/2021 US, Obstetric, Nuchal Translucency Caitlyn decker [address] [place] [address] ([address]) 03/19/2021 US, Obstetric, 2Nd or 3Rd Trimester Olimpia harrington [address] [place] [address] ([address]) 04/15/2021 US, Obstetric, Fol
--- OUTSIDE RECORDS SUMMARY | 2021-07-27 16:09 | XMS_ITS | Encounter Summary ---
:2000 Author Care Team Providers Name Role Phone Yamil Huerta MD Primary Care Provider [phone] Reason for Visit OB visit OB [id number] EDC 07/30/2021 LMP 10/23/2020 Assessment and Plan Assessment Note Patient is __38_weeks . Dis cussed plan. 1. Routine care [...] ft 6 in 150 lbs 24.2 kg/m2 139/89 mm[Hg] Results Lab Results None recorded. Allergies Code Code System Name Reaction Severity Onset NKDA ? ? ? Problems Name Status Onset Date Source ? Activ
--- OUTSIDE RECORDS SUMMARY | 2021-07-27 16:09 | XMS_ITS | Encounter Summary ---
:2000 Author Care Team Providers Name Role Phone Yamil Huerta MD Primary Care Provider [phone] Reason for Visit None recorded. Assessment and Plan 1. Polyhydramnios ? US, obstetric, limited Discussion Note: None recorded.Patient educational handouts: No information available. Plan of Care Reminders Provider Appointments Ob Routine Lucía Jeffries, 07/28/2021 CNM 9:45AM Lab None ? ? recorded. Referral None ? ? recorded. Procedures None ? ? recorded. Surgeries None ? ? recorded. Imaging , [place] [facility], Limited 06/15/2021 Medications Name Start Date ? ? ? Medications Administered None recorded. Vitals None recorded. Results Lab Results None recorded. Allergies Code Code System Name Reaction Severity Onset NKDA ? ? ? Problems Name Status Onset Date Source ? Active 01/22/2021 ? Procedures Date Name Performed by ? 08/07/2000 Removal of M
--- OUTSIDE RECORDS SUMMARY | 2021-07-27 16:09 | XMS_ITS | Encounter Summary ---
:2000 Author Care Team Providers Name Role Phone Yamil Huerta MD Primary Care Provider [phone] Reason for Visit None recorded. Assessment and Plan 1. Medical examination for suspe cted condition ? US, obstetric, limited Discussion Note: None recorded.Patient educational handouts: No information available. Plan of Care Reminders Provider Appointments Ob Routine Lucía Jeffries, 07/28/2021 CNM 9:45AM Lab None ? ? recorded. Referral None ? ? recorded. Procedures None ? ? recorded. Surgeries None ? ? recorded. Imaging , [place] [facility], Limited 04/29/2021 Medications Name Start Date ? ? ? Medications Administered None recorded. Vitals None recorded. Results Lab Results None recorded. Allergies Code Code System Name Reaction Severity Onset NKDA ? ? ? Problems Name Status Onset Date Source ? Active 01/22/2021 ? Procedures Date Name Performed by ?
--- OUTSIDE RECORDS SUMMARY | 2021-07-27 16:09 | XMS_ITS | Encounter Summary ---
:2000 Author Care Team Providers Name Role Phone Yamil Huerta MD Primary Care Provider [phone] Reason for Visit OB visit OB [id number] EDC 07/30/2021 LMP 10/23/2020 Assessment and Plan Assessment Note Patient is _34__weeks . Dis cussed plan. 1. Routine care [...] BMI Blood Pressure 5 ft 6 in 147 lbs 23.7 kg/m2 111/74 mm[Hg] Results Lab Results None recorded. Allergies Code Code System Name Reaction Severity Onset NKDA ? ? ? Problems Name Status Onset Date Source ? Activ
--- OUTSIDE RECORDS SUMMARY | 2021-07-27 16:09 | XMS_ITS | Encounter Summary ---
:2000 Author Care Team Providers Name Role Phone Yamil Huerta MD Primary Care Provider [phone] Reason for Visit OB visit OB [id number] EDC 07/30/2022 LMP 10/23/2020 Assessment and Plan Assessment Note Patient is _36__weeks . Dis cussed plan. 1. Routine care [...] ft 6 in 150 lbs 24.2 kg/m2 114/71 mm[Hg] Results Lab Results None recorded. Allergies Code Code System Name Reaction Severity Onset NKDA ? ? ? Problems Name Status Onset Date Source ? Activ
--- OUTSIDE RECORDS SUMMARY | 2021-07-27 16:09 | XMS_ITS | Encounter Summary ---
:2000 Author Care Team Providers Name Role Phone Yamil Huerta MD Primary Care Provider [phone] Reason for Visit OB visit OB [id number] EDC 07/30/2021 LMP 10/23/2020 Assessment and Plan Assessment Note Patient is _28_weeks . Disc ussed plan. 1. Routine care Discussion Note: None [...] ft 6 in 141 lbs 22.8 kg/m2 107/54 mm[Hg] Results Lab Results None recorded. Allergies Code Code System Name Reaction Severity Onset NKDA ? ? ? Problems Name Status Onset Date Source ? Active
--- OUTSIDE RECORDS SUMMARY | 2021-07-27 16:09 | XMS_ITS | Encounter Summary ---
:2000 Author Care Team Providers Name Role Phone Yamil Huerta MD Primary Care Provider [phone] Reason for Visit None recorded. Assessment and Plan 1. Uterine size for dates discre pancy ? US, obstetric, follow-up Discussion Note: None recorded.Patient educational handouts: No information available. Plan of Care Reminders Provider Appointments Ob Routine Lucía Jeffries, 07/28/2021 CNM 9:45AM Lab None ? ? recorded. Referral None ? ? recorded. Procedures None ? ? recorded. Surgeries None ? ? recorded. Imaging , [facility], Follow-up 06/08/2021 Medications Name Start Date ? ? ? Medications Administered None recorded. Vitals None recorded. Results Lab Results None recorded. Allergies Code Code System Name Reaction Severity Onset NKDA ? ? ? Problems Name Status Onset Date Source ? Active 01/22/2021 ? Procedures Date Name Performed by ?
--- OUTSIDE RECORDS SUMMARY | 2021-07-27 16:09 | XMS_ITS | Encounter Summary ---
:2000 Author Care Team Providers Name Role Phone Yamil Huerta MD Primary Care Provider [phone] Reason for Visit None recorded. Assessment and Plan 1. Medical examination for suspe cted condition ? US, obstetric, limited Discussion Note: None recorded.Patient educational handouts: No information available. Plan of Care Reminders Provider Appointments Ob Routine Lucía Jeffries, 07/28/2021 CNM 9:45AM Lab None ? ? recorded. Referral None ? ? recorded. Procedures None ? ? recorded. Surgeries None ? ? recorded. Imaging , [facility], Limited 05/06/2021 Medications Name Start Date ? ? ? Medications Administered None recorded. Vitals None recorded. Results Lab Results None recorded. Allergies Code Code System Name Reaction Severity Onset NKDA ? ? ? Problems Name Status Onset Date Source ? Active 01/22/2021 ? Procedures Date Name Performed by ?
--- OUTSIDE RECORDS SUMMARY | 2021-07-27 16:09 | XMS_ITS | Encounter Summary ---
:2000 Author Care Team Providers Name Role Phone Yamil Huerta MD Primary Care Provider [phone] Reason for Visit OB visit OB [id number] EDC 07/30/2021 LMP 10/23/2020 Assessment and Plan Assessment Note Patient is _32__weeks . Dis cussed plan. 1. Routine care [...] BMI Blood Pressure 5 ft 6 in 144 lbs 23.2 kg/m2 112/74 mm[Hg] Results Lab Results None recorded. Allergies Code Code System Name Reaction Severity Onset NKDA ? ? ? Problems Name Status Onset Date Source ? Activ
--- NOTE | 2021-07-27 17:31 | WPDOBADMIT ---
Obstetrics - Admit Note Admission Note: 20 y/o G1 @ 39w4d here for elective induction of labor. I received a call that the nursing staff was unable to find heart tones. Upon arrival bedside u/s was performed. No FHT. Discussed findings with Em. I have explained that we need to confirm with official u/s. After confirmation we discussed demise. I explained to them the recommendation for induction of labor. Pt is still processing the news and is not in a place to make decisions right now. They have called family and would like some time to process. record reviewed. No pertinent additions to the history and/or any subsequent changes in the physical findings that are not consistent with the expected course of the were found. Additions to the history and/or subsequent changes in the physical findings follow. None.
--- NOTE | 2021-07-27 18:55 | PC.NURSE ---
TAMAR Johnson at bedside to discuss plan of care with pt.
--- NOTE | 2021-07-27 19:10 | PM.OBPNLAB ---
Pain Control Date/time seen: 07/27/21 19:10 IUFD, discussed induction of labor and pain management, will proceed, dr. blum notified
[2021-07-27] MEDS: miSOPROStol 100 MCG TABLET BY MOUTH (20:29)
[2021-07-27 20:39] LABS: Uric Acid 8.4 mg/dL (2.5-7.5)
[2021-07-27 20:49] LABS: Basophils Absolute Auto 0.1 K/mm3 (0.0-0.1); Basophils Percent Auto 0.4 % (0.2-1.2); Hematocrit 31.1 % (37.0-47.0); Hemoglobin 10.1 g/dL (12.0-15.0); Immature Granulocyte Absolute 0.14 K/mm3 (0.00-0.031); Immature Granulocyte Percent A 1.2 % (0-0.5); Lymphocytes Absolute Auto 1.51 K/mm3 (0.9-3.2); Lymphocytes Percent Auto 12.8 % (18.3-44.2); Mean Corpuscular HGB Conc 32.5 g/dl (32-36); Mean Corpuscular Hemoglobin 27.2 pg (26-34); Mean Corpuscular Volume 83.8 fl (80-100); Monocytes Absolute Auto 0.9 K/mm3 (0.1-0.6); Monocytes Percent Auto 7.6 % (2.6-8.5); Neutrophils Absolute Auto 9.2 K/mm3 (1.3-6.7); Platelet Count Result 163 k/mm3 (150-375); Red Blood Count 3.71 M/mm3 (4.2-5.4); Red Cell Distribution Width 13.7 % (11.5-14.5); White Blood Count 11.8 K/mm3 (4.5-10.0)
[2021-07-27 21:03] LABS: Hemoglobin A1C 5.1 % (<5.7)
[2021-07-27] MEDS: fentaNYL CITRATE INJ (*CRX) 100 MCG/2 ML VIAL 50 MCG IV PUSH (21:11)
[2021-07-27 21:20] LABS: HIV 1/2 Ab P24 Ag Result Negative (Negative)
[2021-07-27 21:33] LABS: Free T4 Free Thyroxine 1.05 ng/mL (0.78-2.19)
[2021-07-27] MEDS: fentaNYL CITRATE INJ (*CRX) 100 MCG/2 ML VIAL IV PUSH ×2 (22:33→23:35)
[2021-07-27 23:30] LABS: Glucose 91 mg/dL (65-110)
[2021-07-27 23:51] LABS: Chloride 108 mmol/L (98-107); Potassium 3.8 mmol/L (3.4-5.0); Sodium 134 mmol/L (137-145)
[2021-07-27 23:52] LABS: Alanine Aminotransferase 11 U/L (4-35); Albumin Level 3.2 g/dL (3.5-5.1); Alkaline Phosphatase 265 U/L (38-126); Anion Gap 6 mmol/L (8-16); Aspartate Amino Transferase 24 U/L (14-36); Bilirubin,Total 0.3 mg/dL (0.2-1.3); Blood Urea Nitrogen 11 mg/dL (7-17); Calcium 8.6 mg/dL (8.4-10.2); Carbon Dioxide 20 mmol/L (22-30); Estimated CRCL calculation 74 ml/min; Estimated Glomerular Filt Rate > 60; Glucose 91 mg/dL (65-110)
[2021-07-28] VITALS (147 sets, daily range): BP systolic 41–146; BP diastolic 18–120; PULSE 57–288; RESP 18; TEMP 37.3–38; O2SAT 95–100
--- NOTE | 2021-07-28 00:20 | WPDANESEPP ---
Anes - Eval Pre Procedure Procedure: labor pain management Date/Time: 07/28/21 00:20 Surgeon: Pawel Preop Diagnosis: pain during labor Pre Op Diagnosis: Induction of Labor Patient Data Age: 20 Gender: F Height: 1.63 m Weight: 68.25 kg Last Vital Signs Temp 99.1 F 07/27/21 22:23 Pulse 149 H 07/28/21 00:15 BP 133/101 H 07/28/21 00:16 Pulse Ox 98 07/28/21 00:08 Allergies Allergy/AdvReac Type Severity Reaction Status Date / Time No Known Allergies Allergy Verified 07/12/21 13:34 Home Medications Medication Instructions Recorded Confirmed Type Classic 1 tablet DAILY 04/03/21 04/03/21 History Laboratory Tests 07/27/21 07/27/21 07/27/21 19:37 20:13 20:13 WBC 11.8 K/mm3 H K/mm3 (4.5-10.0) RBC 3.71 M/mm3 L M/mm3 (4.2-5.4) Hgb 10.1 g/dL L g/dL (12.0-15.0) Hct 31.1 % L % (37.0-47.0) MCV 83.8 fl fl (80-100) MCH 27.2 pg pg (26-34) MCHC 32.5 g/dl g/dl (32-36) RDW 13.7 % % (11.5-14.5) Plt Count 163 k/mm3 k/mm3 (150-375) MPV 13.0 fl H fl (7.4-10.4) Immature Gran % (Auto) 1.2 % H % (0-0.5) Neut % (Auto) 78.0 % H % (45.5-73.1) Lymph % (Auto) 12.8 % L % (18.3-44.2) [place] % (Auto) 7.6 % % (2.6-8.5) Eos % (Auto) 0.0 % % (0-4.4) Baso % (Auto) 0.4 % % (0.2-1.2) Lymph # (Auto) 1.51 K/mm3 K/mm3 (0.9-3.2) [place] # (Auto) 0.9 K/mm3 H K/mm3 (0.1-0.6) Eos # (Auto) 0.0 K/mm3 K/mm3 (0-0.3) Baso # (Auto) 0.1 K/mm3 K/mm3 (0.0-0.1) Abs Immat Gran (auto) 0.14 K/mm3 H K/mm3 (0.00-0.031) Absolute Neuts (auto) 9.2 K/mm3 H K/mm3 (1.3-6.7) Absolute Nucleated RBC 0.0 K/mm3 K/mm3 (0.0-0.012) Nucleated RBC % 0.0 % % (0.0-0.2) LA PTT Screen dRVVT Screen dRVVT Additional Test Lupus Anticoag Interp Sodium 134 mmol/L L mmol/L (137-145) Potassium 3.8 mmol/L mmol/L (3.4-5.0) Chloride 108 mmol/L H mmol/L (98-107) Carbon Dioxide 20 mmol/L L mmol/L (22-30) Anion Gap 6 mmol/L L mmol/L (8-16) BUN 11 mg/dL mg/dL (7-17) Creatinine 0.90 mg/dL mg/dL (0.7-1.0) Estim Creat Clear Calc 74 ml/min ml/min Estimated GFR > 60 (59 - ) Glucose 91 mg/dL mg/dL (65-110) Hemoglobin A1c Uric Acid Calcium 8.6 mg/dL mg/dL (8.4-10.2) Total Bilirubin 0.3 mg/dL mg/dL (0.2-1.3) AST 24 U/L U/L (14-36) ALT 11 U/L U/L (4-35) Alkaline Phosphatase 265 U/L H U/L (38-126) Total Protein 6.0 g/dL L g/dL (6.3-8.2) Albumin 3.2 g/dL L g/dL (3.5-5.1) TSH Free T4 Beta-2-GPI IgG Ab Beta-2-GPI IgA Ab Beta-2-GPI IgM Ab Anti-Cardiolipin IgG Ab Anti-Cardiolipin IgA Ab Anti-Cardiolipin IgM Ab RPR Pending CMV IgG Ab CMV IgM Ab HIV 1&2 Ab/P24 Ag 4thGn Parvovirus B19 IgG Intp Parvovirus B19 IgM Intp SARS-CoV-2 IgG Ab Dget-QLEA-MeA-2 (ECLIA) Blood Type Antibody Screen KB Hemoglobin 07/27/21 07/27/21 07/27/21 20:13 20:13 20:13 WBC RBC Hgb Hct MCV MCH MCHC RDW Plt Count MPV Immature Gran % (Auto) Neut % (Auto) Lymph % (Auto) [place] % (Auto) Eos % (Auto) Baso % (Auto) Lymph # (Auto) [place] # (Auto) Eos # (Auto) Baso # (Auto) Abs Immat Gran (auto)
[2021-07-28 01:23] LABS: Amphetamine Screen Urine Negative (Negative); Barbiturate Screen Urine Negative (Negative); Benzodiazepines Screen Urine Negative (Negative); Cannabinoid Screen Urine Negative (Negative); Cocaine Screen Urine Negative (Negative); Methadone Screen Urine Negative (Negative); Opiate Screen Urine Negative (Negative); Phencyclidine Screen Urine Negative (Negative)
[2021-07-28] MEDS: ONDANSETRON INJ 4 MG/2 ML VIAL IV PUSH (01:24)
[2021-07-28] MEDS: LACTATED RINGERS 1,000 ML 125 ML IV CONT (04:35)
[2021-07-28] MEDS: ACETAMINOPHEN 500 MG TABLET 1000 MG PO (06:18)
[2021-07-28] MEDS: OXYTOCIN 30 UNITS/NS 500 ML 30 UNITS/500 ML BAG 999 UNITS IV CONT (06:18)
[2021-07-28] MEDS: AMPICILLIN 2 GM/NS 100 ML 2 GM/100 ML BAG IVPB (06:18)
--- NOTE | 2021-07-28 07:36 | PM.OBPNLAB ---
Pain Control Date/time seen: 07/28/21 07:36 IUFD, SVE +1, no urge to push no feelings of pressure, meconium fluid
--- NOTE | 2021-07-28 09:39 | PM.OBPRVD ---
OB - Delivery Note Procedure Delivery date: 07/28/21 Procedure: vaginal delivery, IUFD Induction method: per misoprostol protocol and per pitocin protocol Delivery monitor: external uterine Route of delivery: Laceration Description: Perineal - 2nd Degree Delivery repair: vicryl Specimen: Yes Quantitative Blood Loss (ml): 156 Anesthesia type: Epidural Disposition: floor Baby Date of : 07/28/21 Time of : 09:16 Weeks of gestation at delivery: 39 gender: Female presentation: vertex position: Left Occiput Anterior Placenta delivery description: Spontaneous cord vessel description: 3 Vessels Narrative: after delivery of infant cord broke at umbilicus, clamped on both ends, mother in stable condition
[2021-07-28] MEDS: BENZOCAINE 20% AER SPR (*SP) 56 GM CAN 1 SPRAY TOPICAL (10:58)
[2021-07-28] MEDS: WITCH HAZEL 40 PADS 1 PAD TOPICAL (10:58)
[2021-07-28] MEDS: IBUPROFEN 600 MG TABLET PO (10:58)
--- NOTE | 2021-07-28 12:43 | PC.NURSE ---
MTS notified of demise. Not a candidate for donor. No further recommendations.
--- NOTE | 2021-07-28 12:50 | PC.NURSE ---
Gabriel at [facility] Coroner office notified. Body released by ophthalmic nurse.
[2021-07-28 12:58] LABS: Rapid Plasma Reagin Non-Reactive (NonReactive)
[2021-07-30 17:55] LABS: CMV IgG Antibody <0.60 U/mL (<0.60)
--- NOTE | 2021-07-31 14:40 | PM.OBDSVD ---
DS: Admitting Diagnosis Discharge Date 07/28/21 Admitting Diagnosis MIL, IUFD OB - DS: Summary OB Procedures : None OB Procedures Intrapartum: Spontaneous Vag Delivery OB Procedures: : None Time Spent with Patient Time attestation: Total time spent providing and/or coordinating discharge services: DS: Data Data Completed and Pending Pending studies at discharge: Pending at discharge 07/28/21 09:20 Surgical [PTH] Routine Labs on day of discharge: Labs from last 24 hours 07/27/21 20:13 CMV IgG Ab <0.60 Discharge Plan Discharge Attending physician on discharge: Kamille Jeffries Consulting providers: Denisa Streeter ; Kamille Jeffries ; Jose Holman Discharging Clinician: Kamille Jeffries Patient Disposition: Home, Self-Care Activity: pelvic rest and other - see discharge instructions Diet: as tolerated and regular Discharge Instructions: Follow-Up: Call your Provider's office for an appointment to be seen in: 2 Weeks EPISIOTOMY/PERINEAL CARE: * Until bleeding stops, use your ajith bottle after urinating * Change your pad frequently throughout the day * You may take sitz baths several times a day (fill your bathtub with warm water and soak for 20 minutes.) Do NOT bathe in the water * No tub baths until seen by your physician - You may shower BLEEDING: * Each individual will experience vaginal bleeding, but it will vary with each situation and individual woman. * Vaginal bleeding will go thru cycles-from bright red, to pinkish to a white, creamy discharge. This is considered normal. You may also experience a brownish discharge which is also normal. DIET AND NUTRITION: * Eat at least 3 regular, well-balanced meals per day: include all 4 food groups daily. * You may prefer 6 small meals. * Drink 6-8 glasses of water or non-caffeinated beverages per day. * Loss of appetite is common with loss. We encourage you to try to eat; this will help with both your physical and emotional health. ACTIVITY: * Rest as much as possible during the day. * Do not exercise or lift anything heavier than 10 pounds (such as laundry or other children.) * Avoid stairs or driving as much as possible, especially if you are taking pain medication. * Do not put anything into the vagina. No douching, tampons, or sexual activity until seen and released by your physician. * Listen to your body, and do not do what is uncomfortable or painful. EMOTIONAL HEALTH: * This is a very difficult and sad time for you and your family, friends, and other children. It may be helpful to refer to the booklets on loss that you received. * It is okay to be sad and to cry. Denial, anger, and guilt are also normal stages that you and your family may go thru during this time. Each person reaches these stages at their own pace. * Keep the lines of communication open between family and friends, and ask for help if needed. NOTIFY PHYSICIAN IF YOU HAVE ANY QUESTIONS OR IF ANY OF THE FOLLOWING SYMPTOMS OCCUR: * If your episiotomy or incision becomes red, swollen, or more painful than what you have experienced in the hospital. * If your vaginal bleeding becomes foul smelling. * If your vaginal bleeding becomes more heavy than a period or if your bleeding changes from pink to bright red. However, you may pass an occasional walnut-sized clot once or twice for the first week . * If you experience a sharp, shooting pain in you calves. * If you discover a hard, reddened area on your breast or if you experience flu-like symptoms. * If you develop a temperature of 100.4 or greater. * If you are unable to eat or sleep and take care of activities that sustain life. * If you feel any desire to harm yourself or others, contact your physician immediately or go to the nearest emergency room. FOLLOW-UP CARE: * [facility] offers a and Infant Loss Support group which sandra
[2021-07-31 15:14] LABS: CMV IgM Antibody <30.00 AU/mL (<30.00)
[2021-07-31 18:41] LABS: Anti Cardio Antibody IgM <2.0 MPL-U/mL (<20.0); Anti Cardiolipin Antibody IgA <2.0 APL-U/mL (<20.0); Anti Cardiolipin Antibody IgG <2.0 GPL-U/mL (<20.0)
[2021-08-02 14:10] LABS: Lupus dRVVT 1:1 Mix Interpreta Not Indicated; Lupus dRVVT Screen 34 sec (<=45); PTT-LA Screen 31 sec (<=40)
== END 2021-07-28 15:30 | disposition home or self-care (01) | DRG 806 ==
PROVIDERS: Admitting Provider Obstetrics & Gynecology; PCP Advanced Practice Midwife; Visit Provider Obstetrics & Gynecology
DX: O36.4XX0 Maternal care for intrauterine death, not applicable or unspecified (principal); O75.2 Pyrexia during labor, not elsewhere classified; Z37.1 Single stillbirth; Z3A.39 39 weeks gestation of pregnancy
CPT/HCPCS: 36415; 76815; 80053; 80307; 82947; 83036; 84439; 84443; 84550; 85025; 85460; 85613; 85730; 86146; 86147; 86413; 86592; 86644; 86645; 86703; 86747; 86769; 86850; 86900; 86901; 88307; A9270; G0432; J0290; J2405; J2590; J2795; J3010; J7120